=== PATIENT | female | born 1965 | race Hispanic/Latino ===

== ENCOUNTER → 2019-12-31 | Outpatient (CLI) | payer BC | END | disposition home or self-care (01) | LOC: RAH 10:40 | PROVIDERS: ATTEND Family Medicine | DX: K57.31 Diverticulosis of large intestine without perforation or abscess with bleeding (principal); K42.9 Umbilical hernia without obstruction or gangrene; K52.9 Noninfective gastroenteritis and colitis, unspecified; N85.2 Hypertrophy of uterus | CPT/HCPCS: 74176 ==